=== PATIENT | male | born 1995 | race Two or more races ===

== ENCOUNTER 2018-09-09 09:15 | Emergency (ER) | payer BC ==
[~2018-09-09] VITALS: Ht 180.3 cm; Wt 63.3 kg
--- NOTE | 2018-09-09 09:42 | NUR ---
FIRST CONTACT WITH PATIENT. PATIENT PRESENTS TO ED TODAY FOR CHEST TIGHTNESS STARTING YESTERDAY AM, DENIES SOB/ABD PAIN/INJURY. 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 Addendum: 09/09/18 at 0950 by LU PATIENT REPORTS SURGERY FOR PECTUS EXCAVATUM TO REMOVE PLATE 3 MONTHS AGO.
[2018-09-09] MEDS ORDERED: IBUP-1623 PO (09:46)
[2018-09-09 10:22] LABS: BASOPHILS # (AUTO) 0.02 x10^3/uL (0-0.1); BASOPHILS % (AUTO) 1 % (0-1); EOSINOPHILS # (AUTO) 0.09 x10^3/uL (0-0.4); EOSINOPHILS % (AUTO) 2 % (1-7); LYMPHOCYTES # (AUTO) 1.68 x10^3/uL (1-3.4); LYMPHOCYTES % (AUTO) 37 % (22-44); MD NO; MEAN CORPUSCULAR HEMOGLOBIN 28.7 pg (27.5-34.5); MEAN CORPUSCULAR VOLUME 86.9 fL (81-97); MONOCYTES % (AUTO) 7 % (2-9); NEUTROPHILS # (AUTO) 2.46 x10^3/uL (1.8-6.8); NEUTROPHILS % (AUTO) 54 % (42-75); PLATELET COUNT 231 x10^3/uL (130-400); RED BLOOD COUNT 5.66 x10^6/uL (4.38-5.82); RED CELL DISTRIBUTION WIDTH 13.4 % (9.4-14.8)
[2018-09-09 10:40] LABS: ALBUMIN 4.2 g/dL (3.4-5.0); ANION GAP 6 mmol/L (5-15); CALCIUM 9.2 mg/dL (8.5-10.1); CHLORIDE 108 mmol/L (98-107); CREATININE 0.98 mg/dL (0.7-1.3)
[2018-09-09 10:43] LABS: TROPONIN I < 0.015 ng/mL (0.000-0.045)
--- NOTE | 2018-09-09 10:52 | NUR ---
RESULTS BACK, CHART UP FOR RECHECK.
[2018-09-09 11:30] VITALS: BP 115/73
--- NOTE | 2018-09-09 11:30 | NUR ---
THIS FLOAT RN AT BEDSIDE TO DC PT FOR PRIMARY RNFELICITAS. PT AND FAMILY VERBALIZED UNDERSTANDING TO DC INSTRUCTIONS. AMBULATORY TO CHECKOUT C STEADY GAIT. VSS.
== END 2018-09-09 11:32 | disposition home or self-care (01) ==
LOC: ED 11:21
DX: R07.89 Other chest pain (principal)
CPT/HCPCS: 36415; 71046; 80048; 82040; 84484; 85025; 85379; 93005; 99284